=== PATIENT | female | born 2000 | race Caucasian/White ===

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

== ENCOUNTER 2020-08-17 11:21 | Emergency (ER) | payer MEDICAID, SELFPAY ==
[~2020-08-17] VITALS: Ht 157.5 cm; Wt 67.6 kg
[2020-08-17 11:23] VITALS: Ht 157.5 cm; Wt 67.6 kg
[2020-08-17 13:56] VITALS: BP 140/86
== END 2020-08-17 13:56 | disposition home or self-care (01) ==
LOC: ED 11:21
DX: J03.90 Acute tonsillitis, unspecified (principal); Z20.828 Contact with and (suspected) exposure to other viral communicable diseases
CPT/HCPCS: J0696; U0003-CS